=== PATIENT | female | born 1985 | race Caucasian/White ===

== ENCOUNTER 2018-11-19 08:56 | Emergency (ER) | payer OTHER ==
[2018-11-19 09:06] VITALS: O2SAT 98
[2018-11-19] MEDS ORDERED: Sodium Chloride 0.9% 1000 ML 1,000 ML IV STA (09:15)
[2018-11-19] MEDS ORDERED: DECADRON 10MG INJ. IV ONE (09:18)
[2018-11-19] MEDS ORDERED: TORAdol 30 mg Injection IV ONE (09:18)
[2018-11-19] MEDS ORDERED: Norflex 60 MG/2 ML IM ONE (09:19)
[2018-11-19] MEDS ORDERED: Sodium Chloride 0.9% 1000 ML 1,000 ML ONE (09:19)
--- NOTE | 2018-11-19 09:26 | ERPHSYRPT ---
- History of Present Illness Time Seen by Provider: 11/19/18 09:06 Source: patient Exam Limitations: no limitations Patient Subjective Stated Complaint: Pt states "My throat and my neck are killing me. I did not sleep. It started last night." Triage Nursing Assessment: Pt presented alert and oriented X 3, skin pwd Pt ambualtes with an upright stiff gait, not turning head, head slightly angled to the left. PT holding neck and head. Physician History: Pt started c/o sore throat, congestion, left sided neck pain since yesterday, denies fever, chills, nausea, vomiting, chest pain, severe cough or SOB, she has difficulty swallowing, and moving her neck due to pain. Timing/Duration: gradual onset Severity: severe ENT Location: throat Prearrival Treatment: no prearrival treatment Modifying Factors: Improves With: activity, other (swallowing) Associated Symptoms: nasal congestion/drainage, neck pain, sore throat, difficulty swallowing Allergies/Adverse Reactions: No Known Drug Allergies Allergy (Unverified 11/19/18 09:06) Hx Tetanus, Diphtheria Vaccination/Date Given: Yes Hx Influenza Vaccination/Date Given: No Hx Pneumococcal Vaccination/Date Given: No Immunizations Up to Date: Yes - Review of Systems Constitutional: No Symptoms Eyes: No Symptoms Ears, Nose, & Throat: Nose Congestion, Throat Pain, Painful Swallowing Respiratory: No Symptoms Cardiac: No Symptoms Abdominal/Gastrointestinal: No Symptoms Genitourinary Symptoms: No Symptoms Musculoskeletal: Other (left sided neck pain) Skin: No Symptoms Neurological: No Symptoms All Other Systems: Reviewed and Negative - Past Medical History Pertinent Past Medical History: No - Past Surgical History Past Surgical History: Yes Other Surgical History: c section - Social History Smoking Status: Current every day smoker How long have you smoked: years Exposure to second hand smoke: Yes Drug Use: none Patient Lives Alone: No - Female History Hx Last Menstrual Period: 11/04/2018 Hx Now: No - Nursing Vital Signs Nursing Vital Signs: Initial Vital Signs Temperature 98.4 F 11/19/18 09:01 Pulse Rate 94 H 11/19/18 09:01 Respiratory Rate 18 11/19/18 09:01 Blood Pressure 145/91 11/19/18 09:01 O2 Sat by Pulse Oximetry 98 11/19/18 09:01 Pain Scale Pain Intensity 7 - Physical Exam General Appearance: no apparent distress Eye Exam: bilateral eye: PERRL, EOMI Ear Exam: bilateral ear: canal normal (dry wax on right side), TM normal Nasal Exam: normal inspection Throat Exam: pharynx normal, moist mucus membranes, No excessive drooling, No pharynx swelling Neck Exam: normal inspection, supple, trachea midline, tender lateral (left posterior, lateral neck muscles are painful, spastic.), No JVD, No lymphadenopathy (R), No lymphadenopathy (L), No Brudzinski's sign, No Kernig's sign, No meningismus Cardiovascular/Respiratory Exam: chest non-tender, normal breath sounds, regular rate/rhythm, heart sounds normal, no JVD Abdominal Exam: non-tender, soft Neurologic Exam: alert, oriented x 3, cooperative, normal mood/affect Skin Exam: normal color, warm, dry, No rash, No petechiae, No diaphoresis SpO2 Interpretation: normal SpO2: 98 O2 Delivery: Room Air - Course Nursing assessment & vital signs reviewed: Yes EKG Interpreted by Me: RATE (83/min), NORMAL AXIS, NORMAL INTERVALS, NORMAL QRS , Non-specific ST Changes - Radiology Exams C-Spine X-ray Interpretation: Reviewed by me (cervical lordotic streightening, paraspinal spasm, mild C4-7 degenerative endplate spurring.) - CT Exams Soft Tissue Neck CT Interpretation: Other (cervical lorditic reversal, positional vs paraspinal spasm, DJD multilevel.) Ordered Tests: Active Orders 24 hr Category Date Time Status EKG-ER Only STAT Care 11/19/18 09:15 Active IV Insertion STAT Care 11/19/18 09:15 Active CERVICAL SPINE (2 OR 3 VIEW) Stat Exams 11/19/18 09:18 Completed NECK WO CONTRAST [CT] Stat Exams 11/19/18 09:22 Completed CBC W DIFF Stat Lab 11/19/18 09:32 Completed CK-Creatinine Phosphokinase Stat Lab 11/19/18 09:32 Completed CMP Stat Lab 11/19/18 09:32 Completed Erythrocyte Sedimentation Rate Stat Lab 11/19/18 09:32 Completed Lactic Acid Stat Lab 11/19/18 09:28 Completed [place] Screen Stat Lab 11/19/18 09:32 Completed PROTIME WITH INR Stat Lab 11/19/18 09:32 Completed PTT Stat Lab 11/19/18 09:32 Completed TROPONIN Q3H Lab 11/19/18 09:32 Completed TROPONIN Q3H Lab 11/19/18 12:30 Ordered TROPONIN Q3H Lab 11/19/18 15:30 Ordered TROPONIN Q3H Lab 11/19/18 18:30 Ordered TROPONIN Q3H Lab 11/19/18 21:30 Ordered UA W/RFX UR CULTURE Stat Lab 11/19/18 09:16 Uncollected Urine Triage Profile Stat Lab 11/19/18 09:16 Uncollected Medication Summary Discontinued Medications Generic Name Dose Route Start Last Admin Trade Name Mita PRN Reason Stop Dose Admin Dexamethasone Sodium Phosphate 10 mg 11/19/18 09:18 11/19/18 09:40 Decadron 10mg Inj. IV 11/19/18 09:19 10 mg STAT ONE Administration Dexamethasone Sodium Phosphate Confirm 11/19/18 09:34 Decadron 10mg Inj. Administered 11/19/18 09:35 Dose 10 mg .ROUTE .STK-MED ONE Sodium Chloride 1,000 mls @ 999 mls/hr 11/19/18 09:15 11/19/18 09:31 Sodium Chloride 0.9% 1000 Ml IV 11/19/18 10:15 999 mls/hr .Q1H1M STA Administration Sodium Chloride Confirm 11/19/18 09:19 Sodium Chloride 0.9% 1000 Ml Administered 11/19/18 09:20 Dose 1,000 mls @ ud .ROUTE .STK-MED ONE Ketorolac Tromethamine 30 mg 11/19/18 09:18 11/19/18 09:40 Toradol 30 Mg Injection IV 11/19/18 09:19 30 mg STAT ONE Administration Ketorolac Tromethamine Confirm 11/19/18 09:33 Toradol 30 Mg Injection Administered 11/19/18 09:34 Dose 30 mg .ROUTE .STK-MED ONE Orphenadrine Citrate 60 mg 11/19/18 09:19 11/19/18 09:40 Norflex 60 Mg/2 Ml IM 11/19/18 09:20 60 mg STAT ONE Administration Orphenadrine Citrate Confirm 11/19/18 09:33 Norflex 60 Mg/2 Ml Administered 11/19/18 09:34 Dose 60 mg .ROUTE .STK-MED ONE Lab/Rad Data: Laboratory Result Diagrams 11/19/18 09:32 11/19/18 09:32 Laboratory Results 11/19/18 11/19/18 11/19/18 Range/Units 09:32 09:32 09:32 WBC (4.0-10.5) K/mm3 RBC (4.1-5.4) M/mm3 Hgb (12.0-16.0) gm/dl Hct (35-47) % MCV (78-100) fl MCH (26-32) pg MCHC (32-36) g/dl RDW (11.5-14.0) % Plt Count (150-450) K/mm3 MPV (6-9.5) fl Gran % (36.0-66.0) % Eos # (Auto) (0-0.5) Absolute Lymphs (auto) (1.0-4.6) Absolute Monos (auto) (0.0-1.3) Lymphocytes % (24.0-44.0) % Monocytes % (0.0-12.0) % Eosinophils % (0.00-5.0) % Basophils % (0.0-0.4) % Absolute Granulocytes (1.4-6.9) Basophils # (0-0.4) ESR (0-20) mm/hr PT (9.95-12.35) SECONDS INR (0.8-3.0) APTT (25.3-37.0) SECONDS Sodium (137-145) mmol/L Potassium (3.5-5.1) mmol/L Chloride (98-107) mmol/L Carbon Dioxide (22-30) mmol/L Anion Gap (5-15) MEQ/L BUN (7-17) mg/dL Creatinine (0.52-1.04) mg/dL Estimated GFR ML/MIN Glucose (74-106) mg/dL Lactic Acid (0.4-2.0) Calcium (8.4-10.2) mg/dL Total Bilirubin (0.2-1.3) mg/dL AST (14-36) U/L ALT (0-35) U/L Alkaline Phosphatase (38-126) U/L Creatine Kinase (30-135) U/L Troponin I < 0.012 (0.000-0.034) ng/mL Serum Total Protein (6.3-8.2) g/dL Albumin (3.5-5.0) g/dL Monoscreen NEGATIVE (Negative) Group A Strep Antibody NEGATIVE (NEGATIVE) 11/19/18 11/19/18 11/19/18 Range/Units 09:32 09:32 09:32 WBC 11.8 H (4.0-10.5) K/mm3 RBC 4.60 (4.1-5.4) M/mm3 Hgb 12.3 (12.0-16.0) gm/dl Hct 38.5 (35-47) % MCV 83.7 (78-100) fl MCH 26.7 (26-32) pg MCHC 31.9 L (32-36) g/dl RDW 19.0 H (11.5-14.0) % Plt Count 316 (150-450) K/mm3 MPV 9.7 H (6-9.5) fl Gran % 79.4 H (36.0-66.0) % Eos # (Auto) 0.15 (0-0.5) Absolute Lymphs (auto) 1.33 (1.0-4.6) Absolute Monos (auto) 0.92 (0.0-1.3) Lymphocytes % 11.3 L (24.0-44.0) % Monocytes % 7.8 (0.0-12.0) % Eosinophils % 1.3 (0.00-5.0) % Basophils % 0.2 (0.0-0.4) % Absolute Granulocytes 9.38 H (1.4-6.9) Basophils # 0.02 (0-0.4) ESR 7 (0-20) mm/hr PT 13.0 H (9.95-12.35) SECONDS INR 1.15 (0.8-3.0) APTT 32.3 (25.3-37.0) SECONDS Sodium 141 (137-145) mmol/L Potassium 4.1 (3.5-5.1) mmol/L Chloride 108 H (98-107) mmol/L Carbon Dioxide 24 (22-30) mmol/L Anion Gap 13.8 (5-15) MEQ/L BUN 9 (7-17) mg/dL Creatinine 0.52 (0.52-1.04) mg/dL Estimated GFR > 60.0 ML/MIN Glucose 100 (74-106) mg/dL Lactic Acid (0.4-2.0) Calcium 9.3 (8.4-10.2) mg/dL Total Bilirubin 0.50 (0.2-1.3) mg/dL AST 23 (14-36) U/L ALT 12 (0-35) U/L Alkaline Phosphatase 70 (38-126) U/L Creatine Kinase 45 (30-135) U/L Troponin I (0.000-0.034) ng/mL Serum Total Protein 8.1 (6.3-8.2) g/dL Albumin 4.5 (3.5-5.0) g/dL Monoscreen (Negative) Group A Strep Antibody (NEGATIVE) 11/19/18 Range/Units 09:28 WBC (4.0-10.5) K/mm3 RBC (4.1-5.4) M/mm3 Hgb (12.0-16.0) gm/dl Hct (35-47) % MCV (78-100) fl MCH (26-32) pg MCHC (32-36) g/dl RDW (11.5-14.0) % Plt Count (150-450) K/mm3 MPV (6-9.5) fl Gran % (36.0-66.0) % Eos # (Auto) (0-0.5) Absolute Lymphs (auto) (1.0-4.6) Absolute Monos (auto) (0.0-1.3) Lymphocytes % (24.0-44.0) % Monocytes % (0.0-12.0) % Eosinophils % (0.00-5.0) % Basophils % (0.0-0.4) % Absolute Granulocytes (1.4-6.9) Basophils # (0-0.4) ESR (0-20) mm/hr PT (9.95-12.35) SECONDS INR (0.8-3.0) APTT (25.3-37.0) SECONDS Sodium (137-145) mmol/L Potassium (3.5-5.1) mmol/L Chloride (98-107) mmol/L Carbon Dioxide (22-30) mmol/L Anion Gap (5-15) MEQ/L BUN (7-17) mg/dL Creatinine (0.52-1.04) mg/dL Estimated GFR ML/MIN Glucose (74-106) mg/dL Lactic Acid 0.9 (0.4-2.0) Calcium (8.4-10.2) mg/dL Total Bilirubin (0.2-1.3) mg/dL AST (14-36) U/L ALT (0-35) U/L Alkaline Phosphatase (38-126) U/L Creatine Kinase (30-135) U/L Troponin I (0.000-0.034) ng/mL Serum Total Protein (6.3-8.2) g/dL Albumin (3.5-5.0) g/dL Monoscreen (Negative) Group A Strep Antibody (NEGATIVE) - Progress Progress: improved Progress Note: 11/19/18 10:29 Pt improved after given Decadron 10 mg IV, Toradol 30 mg IV, Norflex 60 mg IM, and Fentanyl 50 mcg IV, reviewed her labs and CT , X ray results, discussed with her, Strep and [place] tests are negative, most likely viral throat infection and left sided cervical spasms, also however much less likely early Meningitis discussed with her , offering spinal tap, explained all risks and benefits of the procedure, she understood, she is alert and oriented x4, mentally competent , but refused it at this time, she want to go home and rest, drink plenty of fluids, and gargle frequently with saline water, and follow up with his physician in 2-3 days. She is given Nebo 5/325 mg Po Q6h PRN #10, Flexeril 10 mg TID #30, advised to continue Motrin 400 mg PO Q6h as needed with meals and apply moist heat to painful neck muscles. Counseled pt/family regarding: lab results, diagnosis, need for follow-up, rad results - Departure Departure Disposition: Home Clinical Impression: Cervical paraspinal muscle spasm Pharyngitis Qualifiers: Pharyngitis/tonsillitis etiology: unspecified etiology Qualified Code(s): J02.9 - Acute pharyngitis, unspecified Condition: Stable Critical Care Time: No Referrals: [facility] [employer] [Primary Care Provider] - Instructions: Sore Throat, Adult (DC), Viral Pharyngitis (DC), Torticollis (DC ), Radiculopathy (DC) Additional Instructions: Rest x 2-3 days, apply moist heat to neck, and drink plenty fluids, gargle frequently with warm saline water, follow up with your physician in 2-3 days, return if severe headaches, vomiting, fever> 102 F, lethargy, confusion! Forms: Work/School Release Form Prescriptions: Hydrocodone/APAP 5-325 Tab^^^ [Nebo 5-325 Tablet^^^] 1 tab PO Q6HPRN PRN #10 tablet MDD 6 PRN Reason: Pain Cyclobenzaprine HCl 10 mg [Cyclobenzaprine 10 MG] 10 mg PO DAILY #30 tablet
[2018-11-19] MEDS ORDERED: Norflex 60 MG/2 ML ONE (09:33)
[2018-11-19] MEDS ORDERED: TORAdol 30 mg Injection ONE (09:33)
[2018-11-19] MEDS ORDERED: DECADRON 10MG INJ. ONE (09:34)
[2018-11-19 09:38] LABS: BASOPHIL % 0.2 % (0.0-0.4); Basophil (Absolute #) 0.02 (0-0.4); Eosinophil % 1.3 % (0.00-5.0); Eosinophil (Absolute #) 0.15 (0-0.5); Granulocyte Absolute (ANC) 9.38 (1.4-6.9); Granulocytes % 79.4 % (36.0-66.0); Hematocrit 38.5 % (35-47); Hemoglobin 12.3 gm/dl (12.0-16.0); Lymphocyte (Absolute #) 1.33 (1.0-4.6); Lymphocytes % 11.3 % (24.0-44.0); Mean Cell Volume 83.7 fl (78-100); Mean Corpuscular Hemoglobin 26.7 pg (26-32); Mean Corpuscular Hgb Concent. 31.9 g/dl (32-36); Mean Platelet Volume 9.7 fl (6-9.5); Monocyte (Absolute #) 0.92 (0.0-1.3); Monocytes % 7.8 % (0.0-12.0); Platelet Count 316 K/mm3 (150-450); White Blood Count 11.8 K/mm3 (4.0-10.5)
[2018-11-19 09:41] LABS: INR 1.15 (0.8-3.0)
[2018-11-19 09:44] LABS: PTT 32.3 SECONDS (25.3-37.0)
[2018-11-19 09:46] LABS: ALBUMIN 4.5 g/dL (3.5-5.0); ALKALINE PHOSPHATASE 70 U/L (38-126); ANION GAP 13.8 MEQ/L (5-15); BLOOD UREA NITROGEN 9 mg/dL (7-17); CHLORIDE 108 mmol/L (98-107); CK-Creatinine Phosphokinase 45 U/L (30-135); Calcium 9.3 mg/dL (8.4-10.2); Carbon Dioxide 24 mmol/L (22-30); Creatinine 1 0.52 mg/dL (0.52-1.04); Glucose 100 mg/dL (74-106); Potassium 4.1 mmol/L (3.5-5.1); SGOT/AST 23 U/L (14-36); SGPT/ALT 12 U/L (0-35); SODIUM 141 mmol/L (137-145); Total Protein 8.1 g/dL (6.3-8.2)
[2018-11-19 09:58] LABS: Erythrocyte Sedimentation Rate 7 mm/hr (0-20)
--- NOTE | 2018-11-19 10:08 | XRAY ---
Indication: Left neck pain/stiffness and sore throat. Comparison: None 3 views of the cervical spine demonstrates cervical lordotic straightening, positional versus paraspinal spasm. Minimal/mild C4-C7 degenerative endplate spurring. No other bony, articular, or soft tissue abnormalities.
--- NOTE | 2018-11-19 10:14 | XRAY ---
Indication: Left neck pain/stiffness. Sore throat. Multiple contiguous axial images obtained through the neck without contrast as ordered. Sagittal and coronal reformatted images obtained. Comparison: None Axial images negative for acute fracture, suspicious bony lesions, or spinal canal stenosis. Minimal/mild C3-C7 degenerative endplate spurring. Retropharyngeal fluid collection measuring 1.3 x 2.8 cm in the axial dimension from C2 to C5 level concerning for abscess. Scattered small bilateral cervical and submandibular lymph nodes probably reactive but none pathologically enlarged. Sagittal and coronal reformatted images demonstrate mild cervical lordotic reversal, positional versus paraspinal spasm. Minimal C6-C7 disc space narrowing. No acute compression fracture, subluxation, or jumped facet. Normal-appearing craniocervical junction. Supra and infraglottic airway is widely patent. Remaining visualized noncontrasted soft tissues demonstrates minimal left and moderate right maxillary sinus floor mucosal thickening. Also minimal mucosal thickening of both ethmoid sinuses. There are multiple bilateral dental caries. Base of the brain and lung apices unremarkable. Impression: 1. Retropharyngeal fluid collection as detailed concerning for abscess. 2. Cervical lordotic reversal, positional versus paraspinal spasm. 3. Multilevel degenerative changes, paranasal sinus disease, and multiple dental caries. CT DI 12.14
[2018-11-19] MEDS ORDERED: SUBLIMAZE 100 MCG/2 ML IV ONE (10:23)
[2018-11-19 10:29] VITALS: BP 122/85; PULSE 73
[2018-11-19] MEDS ORDERED: SUBLIMAZE 100 MCG/2 ML ONE (10:32)
== END 2018-11-19 11:03 | disposition home or self-care (01) ==
LOC: ED 08:56
DX: M62.838 Other muscle spasm (principal); J02.9 Acute pharyngitis, unspecified
CPT/HCPCS: 36000; 36415; 70490; 72040; 80053; 82550; 83605; 84484; 85025; 85610; 85652; 85730; 86308; 87651; 93005; 96360; 96372; 96374; 96375; 99285; J1100; J1885; J2360; J3010